=== PATIENT | female | born 1985 | race American Indian/Alaskan Native ===

== ENCOUNTER 2017-05-04 15:42 | Emergency (ER) | payer BC ==
[2017-05-04 21:11] LABS: Basophils % (Auto) 0.7 % (0.0-1.8); Eosinophils # (Auto) 0.1 K/mm3 (0.0-0.4); Eosinophils % (Auto) 0.9 % (0.0-4.3); Hemoglobin 12.2 gm/dl (10.1-14.3); Lymphocytes # (Auto) 2.8 K/mm3 (1.2-5.4); Lymphocytes % (Auto) 40.9 % (13.4-35.0); Mean Corpuscular HGB Conc 32 % (30-34); Mean Corpuscular Hemoglobin 26 pg (28-32); Mean Corpuscular Volume 81 fl (79-97); Monocytes # (Auto) 0.4 K/mm3 (0.0-0.8); Monocytes % (Auto) 5.3 % (0.0-7.3); Platelet Count 202 K/mm3 (140-440); Red Blood Count 4.69 M/mm3 (3.65-5.03); Red Cell Distribution Width 12.8 % (13.2-15.2)
--- NOTE | 2017-05-04 21:26 | Emergency Department Report ---
- General Chief complaint: Weakness Stated complaint: BLOOD SUGAR HIGH Source: patient Mode of arrival: Ambulatory Limitations: No Limitations - History of Present Illness Initial comments: 32-year-old female past medical history type 2 diabetes presents with complaint of episode of weakness which occurred today while at work. Patient states that she has been excessively thirsty and urinating more than usual for the last several weeks. Has been without diabetes medication for over one year. Patient understands some Tajik but primarily speaks Creole/Swedish. Patient's is at bedside. Patient states that she is okay with translating for her. She denies any current chest pain shortness of breath palpitations nausea but does state she feels excessively thirsty and weak. States she had brief episode of chest discomfort while she felt weak and lightheaded earlier today. Patient endorses that she has not taken diabetes medicine in over one year. Does not currently have primary doctor. Denies any dysuria abdominal pain shortness of breath at rest. States she feels slightly more fatigued than usual. Denies any alcohol or drug use. Patient denies ever being on insulin this is corroborated by her at bedside. Complaint: lack of energy Location: generalized Severity: moderate Consistency: intermittent Improves with: none Worsens with: none Associated Symptoms: denies other symptoms - Related Data Previous Rx's Medication Instructions Recorded Last Taken Type Glimepiride [Amaryl] 2 mg PO QDDIAB #30 tablet 05/28/15 Unknown Rx metFORMIN [Glucophage] 1,000 mg PO BIDDIAB #60 tablet 05/28/15 Unknown Rx Blood Sugar Diagnostic [One Touch 1 each AC #1 box 05/05/17 Unknown Rx Ultra Test Strips] Blood-Glucose Meter [Onetouch 1 each AC #1 kit 05/05/17 Unknown Rx Ultramini] Lancing Device/Lancets [Onetouch 1 each AC #1 box 05/05/17 Unknown Rx Suresoft Lancing Dev] metFORMIN [Glucophage] 500 mg PO QDAY #30 tab 05/05/17 Unknown Rx Allergies Allergy/AdvReac Type Severity Reaction Status Date / Time No Known Allergies Allergy Unverified 05/26/15 20:14 ED Review of Systems ROS: Stated complaint: BLOOD SUGAR HIGH Other details as noted in HPI Constitutional: other (several months of polydipsia polyuria and polyphagia). denies: chills, fever Eyes: denies: eye pain, eye discharge, vision change ENT: denies: ear pain, throat pain Respiratory: denies: cough, shortness of breath, wheezing Cardiovascular: denies: chest pain, palpitations Endocrine: no symptoms reported, increased hunger, increased thirst, increased urine Gastrointestinal: denies: abdominal pain, nausea, diarrhea Genitourinary: denies: urgency, dysuria, discharge Musculoskeletal: denies: back pain, joint swelling, arthralgia Skin: denies: rash, lesions Neurological: denies: headache, weakness, paresthesias Psychiatric: denies: anxiety, depression Hematological/Lymphatic: denies: easy bleeding, easy bruising ED Past Medical Hx - Past Medical History Previous Medical History?: Yes Hx Diabetes: Yes - Surgical History Past Surgical History?: No - Social History Smoking Status: Never Smoker - Medications Home Medications: Home Medications Medication Instructions Recorded Confirmed Last Taken Type Glimepiride [Amaryl] 2 mg PO QDDIAB #30 tablet 05/28/15 Unknown Rx metFORMIN [Glucophage] 1,000 mg PO BIDDIAB #60 tablet 05/28/15 Unknown Rx Blood Sugar Diagnostic [One Touch 1 each AC #1 box 05/05/17 Unknown Rx Ultra Test Strips] Blood-Glucose Meter [Onetouch 1 each AC #1 kit 05/05/17 Unknown Rx Ultramini] Lancing Device/Lancets [Onetouch 1 each AC #1 box 05/05/17 Unknown Rx Suresoft Lancing Dev] metFORMIN [Glucophage] 500 mg PO QDAY #30 tab 05/05/17 Unknown Rx ED Physical Exam - General Limitations: No Limitations General appearance: alert, in no apparent distress - Head Head exam: Present: atraumatic, normocephalic - Eye Eye exam: Present: normal appearance, PERRL, EOMI - ENT ENT exam: Present: mucous membranes moist - Neck Neck exam: Present: normal inspection - Respiratory Respiratory exam: Present: normal lung sounds bilaterally (lungs clear to auscultation bilaterally). Absent: respiratory distress - Cardiovascular Cardiovascular Exam: Present: regular rate, normal rhythm. Absent: systolic murmur, diastolic murmur, rubs, gallop - GI/Abdominal GI/Abdominal exam: Present: soft (abdomen soft nontender nondistended), normal bowel sounds - Extremities Exam Extremities exam: Present: normal inspection - Back Exam Back exam: Present: normal inspection - Neurological Exam Neurological exam: Present: alert, oriented X3 - Psychiatric Psychiatric exam: Present: normal affect, normal mood - Skin Skin exam: Present: warm, dry, intact, normal color. Absent: rash - Assessment Assessment Interval: Baseline - Level of Consciousness 1a. Level of Consciousness: alert - LOC Questions 1b. LOC Questions: answers correctly - LOC Command 1c. LOC Commands: performs tasks correctly - Best Gaze 2. Best Gaze: normal - Visual 3. Visual: no visual loss - Facial Palsy 4. Facial Palsy: normal symmetrical movement - Motor Arm 5b. Motor Arm Right: no drift 5a. Motor Arm Left: no drift - Motor Leg 6a. Motor Leg Left: no drift 6b. Motor Leg Right: no drift - Limb Ataxia 7. Limb Ataxia: absent - Sensory 8. Sensory: normal - Best Language 9. Best Language: no aphasia - Dysarthria 10. Dysarthria: normal - Extinction and Inattention 11. Extinction/Inattention: no abnormality - Scoring Total Score: 0 Stroke Severity: No Stroke Symptoms ED Course Vital Signs 05/04/17 05/05/17 16:19 01:09 Temperature 98.7 F 98.6 F Pulse Rate 72 76 Respiratory 16 16 Rate Blood Pressure 135/97 Blood Pressure 139/85 [Right] O2 Sat by Pulse 100 100 Oximetry ED Medical Decision Making - Lab Data Result diagrams: 05/04/17 21:03 05/04/17 23:57 - Medical Decision Making A/P: Polydipsia, polyuria hyperglycemia uncontrolled diabetes 1-patient feels better after hydration and correction of hyperglycemia 2-will restart patient on metformin 3-I emphasized the importance of primary care and follow-up and management of diabetes. I explained to patient uncontrolled diabetes and put her at risk for multiple complications including stroke heart attack blindness organ failure and . Patient's translating at bedside and patient acknowledged she understood my clinical concerns. [email or web address] 4-vital signs stable for discharge. I discussed the case with Dr. Ford including labs and EKG before discharge. HEART SCORE 1, low risk, will refer to primary care and outpatient cardiology Critical care attestation.: If time is entered above; I have spent that time in minutes in the direct care of this critically ill patient, excluding procedure time. ED Disposition Clinical Impression: Lightheadedness, Polydipsia Hyperglycemia due to type 2 diabetes mellitus Qualifiers: Diabetes mellitus correction insulin use: without termite exterminator helper use Qualified Code(s ): E11.65 - Type 2 diabetes mellitus with hyperglycemia Disposition: DC- TO HOME OR SELFCARE Is pt being admited?: No Does the pt Need Aspirin: No Condition: Stable Instructions: Metformin (By mouth), How to Check Your Blood Sugar (ED), Diabetes Mellitus Type 2 in Adults (ED), Diabetic Hyperglycemia (ED) Prescriptions: Blood Sugar Diagnostic [One Touch Ultra Test Strips] 1 each AC #1 box Blood-Glucose Meter [Onetouch Ultramini] 1 each AC #1 kit Lancing Device/Lancets [Onetouch Suresoft Lancing Dev] 1 each AC #1 box metFORMIN [Glucophage] 500 mg PO QDAY #30 tab Referrals: [facility] [Outside] - 3-5 Days [facility] [Outside] - 3-5 Days Forms: Accompanied Note, Work/School Release Form(ED) Time of Disposition: 01:27
[2017-05-04] MEDS ORDERED: NACL 0.9% 1000 ML 1,000 ML IV ONE ×2 (21:27→22:36)
[2017-05-04 21:30] LABS: Alanine Aminotransferase 18 units/L (7-56); Albumin 4.3 g/dL (3.9-5)
[2017-05-04 21:36] LABS: Bilirubin,Direct < 0.2 mg/dL (0-0.2)
[2017-05-04 21:41] LABS: BUN/Creatinine Ratio 17; Blood Urea Nitrogen 10 mg/dL (7-17); Calcium 9.2 mg/dL (8.4-10.2); Hemolysis Index 12
[2017-05-04] MEDS ORDERED: HumuLIN R IV ONE (22:00)
[2017-05-04 22:25] LABS: Bacteria,Urine 1+ /HPF (Negative); Bilirubin,Urine NEG (Negative); Blood,Urine NEG (Negative); Color,Urine Straw (Yellow); Mucus,Urine FEW /HPF; Protein,Urine <15 mg/dL mg/dL (Negative); Urobilinogen,Urine < 2.0 mg/dL (<2.0)
[2017-05-04 22:34] LABS: HCG Qualitative,Urine Negative (Negative)
[2017-05-04] MEDS ORDERED: TYLENOL PO ONE (23:50)
[2017-05-05 00:29] LABS: BUN/Creatinine Ratio 20; Blood Urea Nitrogen 8 mg/dL (7-17); Hemolysis Index 16
--- NOTE | 2017-05-05 00:37 | XRay Report ---
FINAL REPORT EXAM: XR CHEST ROUTINE 2V HISTORY: chest pain TECHNIQUE: PA and lateral views of the chest were submitted. There are no previous studies available for comparison. FINDINGS: There are calcified granulomas in the right hilum. The lungs show no evidence of infiltrates or congestion. Pleural fluid is not seen but heart size is normal. The bones and soft tissues are well maintained. IMPRESSION: Calcified granulomas in the right hilum. No acute process in the chest otherwise.
[2017-05-05 01:10] VITALS: BP 139/85
== END 2017-05-05 01:50 | disposition home or self-care (01) ==
LOC: ED 15:42
DX: E11.65 Type 2 diabetes mellitus with hyperglycemia (principal)
CPT/HCPCS: 36415; 71046; 80048; 80074; 81001; 81025; 82550; 82805; 82962; 84484; 85025; 85379; 93005; 93010; 96361; 96374; 99284; J7030; J1815